=== PATIENT | male | born 1955 | race Caucasian/White ===

== ENCOUNTER 2016-11-19 14:47 | Emergency (ER) | payer OTHER ==
[2016-11-19 14:54] VITALS: BP 138/70; BMI 22.9
[2016-11-19] MEDS ORDERED: NORFLEX INJ IM ONE (15:25)
[2016-11-19] MEDS ORDERED: TORADOL 60 MG VIAL IM ONE (15:25)
[2016-11-19] MEDS ORDERED: NORFLEX INJ ONE (15:31)
[2016-11-19] MEDS ORDERED: TORADOL 60 MG VIAL ONE (15:31)
--- NOTE | 2016-11-19 17:10 | DR.GENAD ---
HPI - PCP Primary Care Physician: FRANCISCO QUEEN - HPI Comment HPI Comment: HISTORY BELOW. - Complaint/Symptoms Chief Complaint Doctors Comments: BACK PAIN FOR FEW DAYS. BEING LITING HEAVY LOG WHILE CLEANING YARD. PAIN SEVERE TODAY. NO FEVER OR DYSURIA. Chief Complaint:: "HURTING IN MY BACK PULLED SOMETHING FRIDAY" ALSO A NAIL WENT IN MY RIGHT FOOT FRIDAY" - Nurses notes reviewed Nurses Notes Review: Yes - Source History Provided: Patient - Mode of Arrival Mode of Arrival: Ambulatory - Timing Onset of Chief Complaint: 11/16/16 Came on: Suddenly - Duration Duration: Constant Duration: Days - Severity Severity: Moderate PMH - PMH Past Medical History: Yes Past Medical History: Anxiety, Hypertension Past Medical History Comment: HEART ATTACK, THROID, ACID REFLUX, PTSD Past Surgical History: Yes Surgical History: Appendectomy Past Surgical History Comment: TWO STENTS - Family History History of Family Medical Conditions: Yes Family Medical History: Diabetes Mellitus, [place], Hypertension - Social History Does patient currently use any type of tobacco product: Yes Have you used tobacco products in the last 12 months: Yes Type of Tobacco Use: Cigarettes How many years tobacco product used: 40 Does any household member use tobacco: No Alcohol Use: Occasionally Do you use any recreational Drugs:: No Lives With: Family Lives Where: Home - infectious screening In the last 2 months have you had wt loss of >10#?: NO Have you had fever, night sweats or hemotysis?: No Have you traveled outside the country in the last 6 months?: No Isolation: Standard ROS - Review of Systems Constitutional: No Symptoms Reported Eyes: No Symptoms Reported ENTM: No Symptoms Reported Respiratoy: No Symptoms Reported Cardiovascular: No Symptoms Reported Gastrointestinal/Abdominal: No Symptoms Reported Genitourinary: No Symptoms Reported Neurological: No Symptoms Reported Musculoskeletal: Back Pain (MID BACK PAIN, BAND LIKE GOING TO THE FRONT.), Muscle Pain Integumentary: No Symptoms Reported Hematologic/Lymphatic: No Symptoms Reported Endocrine: No Symptoms Reported All Other Systems: Reviewed and Negative PE - Vital Signs Vitals: Temperature 98 F Pulse Rate 66 Respiratory Rate 18 Blood Pressure 138/70 O2 Sat by Pulse Oximetry 100 - General Limitations: No Limitations General Appearance: Alert - Head Head Exam: Normal Inspection - Eyes Eye exam: Normal Appearance - ENT ENT Exam: Normal External Ear Exam External Ear Exam: Normal External Inspection TM/Canal Exam: Bilateral Normal Nose Exam: Normal Nose Exam Mouth Exam: Normal Inspection Throat Exam: Normal Inspection - Neck Neck Exam: Trachea Midline - Chest Chest Inspection: Symmetric Chest Wall Rise - Respiratory Respiratory Exam: Normal Lung Sounds Bilat Respiratory Exam: Bilateral Clear to Auscultation - Cardiovascular Cardiovascular Exam: Regular Rate, Normal Rhythm, Normal Heart Sounds - Abdominal Exam Abdominal Exam: Normal Bowel Sounds, Soft. negative: Tenderness - Extremities Extremities Exam: Normal Inspection - Back Back Exam: Paraspinal Tenderness (T SPINE), Vertebral Tenderness (T SPINE) - Neurologic Neurological Exam: Alert, Oriented X3 - Psychiatric Psychiatric Exam: Normal Affect, Normal Mood - Skin Skin Exam: Normal Color MDM - Differential Diagnosis Differential Diagnosis: MID BACK PAIN, RADICULOPATHY Course - Treatment Treatment: SEE ORDERS. - Reevaluation 1st: Improved (WITH IM TORADOL AND NORFLEX.) - Education/Counseling Education/Counseling: Patient, Education Educated On: Treatment, Diagnosis, Needs for Follow Up ROR - XRAY XRAY Interpreted by: Radiologist XRAY Findings: REPORT DISCUSS WITH PATIENT. - Diagnosis Discharge Problem: Radiculopathy, thoracic region Strain of thoracic spine Qualifiers: Encounter type: initial encounter Qualified Code(s): S29.019A - Strain of muscle and tendon of unspecified wall of thorax, initial encounter Sprain of thoracic spine Qualifiers: Encounter type: initial encounter Qualified Code(s): S23.9XXA - Sprain of unspecified parts of thorax, initial encounter - Discharge Plan Disposition: 01 HOME, SELF-CARE Condition: Stable Prescriptions: Cyclobenzaprine HCl [FLEXERIL 10 MG *] 10 mg PO TID PRN #20 tab PRN Reason: Ibuprofen [MOTRIN TAB 600 MG *] 600 mg PO TID PRN #20 tab PRN Reason: Pain/Inflammation Tramadol HCl 50 mg PO Q8H #15 tablet - Follow ups/Referrals Follow ups/Referrals: FRANCISCO QUEEN [Primary Care Provider] - 3 days - Instructions Instructions: Thoracic Strain, [id number] Additional Instructions: RETURN TO ED IF WORSE.
--- NOTE | 2016-11-19 17:42 | RAD ---
HISTORY: Back pain, side pain Study: Three views thoracic spine Comparison: None Findings: Normal alignment of the thoracic spine is maintained. Vertebral body heights are preserved. The disc spaces appear normal. No acute fracture or subluxation identified. The visualized lungs are clear. Multilevel spondylosis is seen in the cervical spine with disc disease at C5-C6 and C6-C7. IMPRESSION: 1. Negative thoracic spine radiographs. Reported By:
== END 2016-11-19 17:35 | disposition home or self-care (01) ==
LOC: ER 15:09
DX: S29.019A Strain of muscle and tendon of unspecified wall of thorax, initial encounter (principal); S23.9XXA Sprain of unspecified parts of thorax, initial encounter; M54.14 Radiculopathy, thoracic region; X50.0XXA Overexertion from strenuous movement or load, initial encounter; Y92.096 Garden or yard of other non-institutional residence as the place of occurrence of the external cause
CPT/HCPCS: 72072; 96372; 99282; 99283; J1885; J2360